=== PATIENT | female | born 1985 | race Two or more races ===

== ENCOUNTER 2018-06-26 01:53 | Emergency (ER) | payer SELFPAY ==
[~2018-06-26] VITALS: Ht 160 cm; Wt 52.2 kg
[2018-06-26] MEDS ORDERED: ONDANSETRON ODT 4 MG TAB PO ONE (02:15)
[2018-06-26 02:48] LABS: Basophils # (auto) 0 uL; Eosinophils # (auto) 0.2 uL; Hemoglobin 9.6 g/dL (12.2-16.2); Mean Corpuscular Hemoglobin 21.9 pg (28.0-32.0); Neutrophils # (auto) 3.5 uL; Red Cell Distribution Width 16.7 % (11.8-14.3)
[2018-06-26 02:49] LABS: Basophils % (auto) 0.6 % (0.0-2.0); Eosinophils % (auto) 3.2 % (0.0-7.0); Hematocrit 30.5 % (36.0-46.0); Lymphocytes # (auto) 2.5 uL; Lymphocytes % (auto) 36.2 % (10.0-50.0); Mean Corpuscular Hgb Conc. 31.5 g/dL (32.0-36.0); Mean Corpuscular Volume 69.6 fL (80.0-100.0); Monocytes # (auto) 0.6 uL; Monocytes % (auto) 8.5 % (0.0-12.0); Neutrophils % (auto) 51.5 % (37.0-80.0); Platelet Count (auto) 243 10^3/uL (140-450); Red Blood Cells 4.38 10^6/uL (4.0-5.20); White Blood Cell 6.8 10^3/uL (4.4-10.8)
[2018-06-26 02:54] LABS: Urine Bacteria FEW /hpf (None Seen); Urine Blood Negative /uL (Negative); Urine Specific Gravity 1.008 (1.001-1.035); Urine WBC 2 /hpf (0 - 5)
[2018-06-26 02:59] LABS: Albumin 3.6 g/dL (3.4-5.0); Calcium 8.4 mg/dL (8.5-10.1); Potassium 3.8 mmol/L (3.5-5.1)
[2018-06-26 03:01] LABS: BUN/Creatinine Ratio 14.9
[2018-06-26 03:04] LABS: Bilirubin, Total 0.3 mg/dL (0.2-1.0); Total Protein 7.7 g/dL (6.4-8.2)
[2018-06-26 05:03] VITALS: BP 96/52
[2018-06-26] MEDS ORDERED: SODIUM CHLORIDE 0.9% 1,000 ML IV ONE (08:00)
[2018-06-26] MEDS ORDERED: cefTRIAXone 1GM/10ml IVPUSH 10 ML IV ONE (08:00)
[2018-06-26] MEDS ORDERED: DICYCLOMINE HCL 10 MG CAP PO ONE (08:00)
[2018-06-26] MEDS ORDERED: KETOROLAC TROMETH 30 MG/ML 1ML VIAL IV ONE (08:00)
[2018-06-26] MEDS ORDERED: ONDANSETRON HCL 4 MG/2 ML VIAL IV ONE (08:00)
== END 2018-06-26 05:27 | disposition home or self-care (01) ==
LOC: ER 01:53
DX: K80.20 Calculus of gallbladder without cholecystitis without obstruction (principal); N39.0 Urinary tract infection, site not specified
CPT/HCPCS: 36415; 80053; 81001; 81025; 82150; 83690; 85025; 96374; 96375; 99284; J0500; J0696; J1885; J2405; J7030; Q0162